=== PATIENT | male | born 1940 | race Caucasian/White ===

== ENCOUNTER → 2017-03-11 | Day surgery (SDC) | payer OTHER, BC | END | disposition home or self-care (01) | LOC: BMCIMAGING 08:18 | PROVIDERS: ATTEND Urology | PROC: 0VB03ZX Excision of Prostate, Percutaneous Approach, Diagnostic (ICD-10-PCS; principal; 2017-03-11) | DX: C61 Malignant neoplasm of prostate (principal) ==

== ENCOUNTER → 2017-03-25 | Outpatient (CLI) | payer OTHER, BC ==
[~2017-03-25] MED LIST: GADOBUTROL 10 ML VIAL IVP ONE
[2017-03-25 09:48] LABS: GLOMERULAR FILTRATION RATE > 60
== END ==
LOC: FIMAGING 09:04
PROVIDERS: ATTEND Urology
DX: C61 Malignant neoplasm of prostate (principal); M53.3 Sacrococcygeal disorders, not elsewhere classified; Z85.01 Personal history of malignant neoplasm of esophagus
CPT/HCPCS: 72197; 76377; A9585

== ENCOUNTER → 2017-03-30 | Outpatient (CLI) | payer OTHER, BC | LOC: FIMAGING 10:34 | PROVIDERS: ATTEND Urology | PROC: CP2 Nuclear Medicine, Musculoskeletal System, Tomographic (Tomo) Nuclear Medicine Imaging (ICD-10-PCS; principal; 2017-03-30) | DX: M89.8X0 Other specified disorders of bone, multiple sites (principal); C61 Malignant neoplasm of prostate; Z85.01 Personal history of malignant neoplasm of esophagus ==

== ENCOUNTER → 2017-05-13 | Outpatient (CLI) | payer OTHER, BC | LOC: CIMAGING 13:17 | PROVIDERS: ATTEND Radiology Radiation Oncology | DX: C61 Malignant neoplasm of prostate (principal) | CPT/HCPCS: 71250-PO ==